=== PATIENT | male | born 1930 | race Caucasian/White ===

== ENCOUNTER 2016-05-05 20:39 | Inpatient (IN) | payer MEDICARE, BC ==
--- NOTE | 2016-05-05 21:10 | ED ---
General Adult HPI - General Chief complaint: Recheck/Abnormal Lab/Rx Stated complaint: Low hemoglobin Time Seen by Provider: 05/05/16 20:53 Source: patient, RN notes reviewed, old records reviewed Mode of arrival: ambulatory Limitations: no limitations - History of Present Illness Initial comments: This is an 85-year-old male the ER to complain of weakness and fatigue. Patient had outpatient lab tests showing low hemoglobin. Patient does admit to dark stools. No prior history of internal bleeding. No are no prior history of GI bleed. No weakness dose syncope no chest pain or shortness of breath. Patient coming out on any blood thinners - Related Data Home Medications Medication Instructions Recorded Confirmed Ascorbic Acid [Vitamin C] 500 mg PO DAILY 05/05/16 05/05/16 Aspirin EC [Ecotrin Low Dose] 81 mg PO DAILY 05/05/16 05/05/16 Bisoprolol-Hctz 5-6.25 mg [Ziac 1 tab PO DAILY 05/05/16 05/05/16 5-6.25] Multivit-Min/FA/Vit K/Lycopene 1 tab PO DAILY 05/05/16 05/05/16 [One-A-Day Men's 50+ Tablet] Allergies Allergy/AdvReac Type Severity Reaction Status Date / Time No Known Allergies Allergy Verified 05/05/16 21:04 Review of Systems ROS Statement: Those systems with pertinent positive or pertinent negative responses have been documented in the HPI. ROS Other: All systems not noted in ROS Statement are negative. 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 Absent: scleral icterus, conjunctival injection, periorbital swelling ENT exam: Present: normal exam, mucous membranes moist Neck exam: Present: normal inspection. Absent: tenderness, meningismus, lymphadenopathy Respiratory exam: Present: normal lung sounds bilaterally. Absent: respiratory distress, wheezes, rales, rhonchi, stridor Cardiovascular Exam: Present: regular rate, normal rhythm, normal heart sounds. Absent: systolic murmur, diastolic murmur, rubs, gallop, clicks GI/Abdominal exam: Present: soft, normal bowel sounds. Absent: distended, tenderness, guarding, rebound, rigid Rectal exam: Present: heme (+) stool, black stool Extremities exam: Present: normal inspection, full ROM, normal capillary refill. Absent: tenderness, pedal edema, joint swelling, calf tenderness Back exam: Present: normal inspection Neurological exam: Present: alert, oriented X3, CN II-XII intact Psychiatric exam: Present: normal affect, normal mood Skin exam: Present: warm, dry, intact, normal color. Absent: rash Course Vital Signs 05/05/16 05/05/16 20:45 22:01 Temperature 98.2 F Pulse Rate 71 66 Respiratory 20 16 Rate Blood Pressure 143/78 127/57 O2 Sat by Pulse 98 96 Oximetry Medical Decision Making - Medical Decision Making 85 male for evaluation of low hemoglobin, patient is anemic, weak, fatigued, occasionally short of breath with activity. No blood thinners. Patient will be admitted for further evaluation of GI bleed - Lab Data Result diagrams: 05/05/16 21:20 05/05/16 21:20 Lab Results 05/05/16 05/05/16 05/05/16 Range/Units 21:20 21:20 21:20 WBC 5.0 (3.8-10.6) k/uL RBC 2.76 L (4.30-5.90) m/uL Hgb 6.1 L* (13.0-17.5) gm/dL Hct 20.8 L (39.0-53.0) % MCV 75.5 L (80.0-100.0) fL MCH 22.0 L (25.0-35.0) pg MCHC 29.2 L (31.0-37.0) g/dL RDW 17.9 H (11.5-15.5) % Plt Count 210 (150-450) k/uL Neutrophils % 65 % Lymphocytes % 22 % Monocytes % 7 % Eosinophils % 2 % Basophils % 1 % Neutrophils # 3.2 (1.3-7.7) k/uL Lymphocytes # 1.1 (1.0-4.8) k/uL Monocytes # 0.4 (0-1.0) k/uL Eosinophils # 0.1 (0-0.7) k/uL Basophils # 0.0 (0-0.2) k/uL Hypochromasia Marked Poikilocytosis Slight Anisocytosis Slight Microcytosis Slight PT (9.0-12.0) sec INR (<1.1) APTT (22.0-30.0) sec Sodium 141 (137-145) mmol/L Potassium 3.5 (3.5-5.1) mmol/L Chloride 106 (98-107) mmol/L Carbon Dioxide 23 (22-30) mmol/L Anion Gap 12 mmol/L BUN 32 H (9-20) mg/dL Creatinine 0.99 (0.66-1.25) mg/dL Est GFR (MDRD) Af Amer >60 (>60 ml/min/1.73 sqM) Est GFR (MDRD) Non-Af >60 (>60 ml/min/1.73 sqM) Glucose 131 H (74-99) mg/dL Calcium 8.9 (8.4-10.2) mg/dL Magnesium 2.1 (1.6-2.3) mg/dL Total Bilirubin 1.3 (0.2-1.3) mg/dL AST 19 (17-59) U/L ALT 26 (21-72) U/L Alkaline Phosphatase 41 (38-126) U/L Total Creatine Kinase 79 (55-170) U/L CK-MB (CK-2) 0.8 (0.0-2.4) ng/mL CK-MB (CK-2) Rel Index 1.0 Troponin I <0.012 (0.000-0.034) ng/mL Total Protein 6.3 (6.3-8.2) g/dL Albumin 3.6 (3.5-5.0) g/dL Lipase 19 L (23-300) U/L Blood Type Blood Type Recheck Antibody Screen Spec Expiration Date 05/05/16 05/05/16 Range/Units 21:20 21:20 WBC (3.8-10.6) k/uL RBC (4.30-5.90) m/uL Hgb (13.0-17.5) gm/dL Hct (39.0-53.0) % MCV (80.0-100.0) fL MCH (25.0-35.0) pg MCHC (31.0-37.0) g/dL RDW (11.5-15.5) % Plt Count (150-450) k/uL Neutrophils % % Lymphocytes % % Monocytes % % Eosinophils % % Basophils % % Neutrophils # (1.3-7.7) k/uL Lymphocytes # (1.0-4.8) k/uL Monocytes # (0-1.0) k/uL Eosinophils # (0-0.7) k/uL Basophils # (0-0.2) k/uL Hypochromasia Poikilocytosis Anisocytosis Microcytosis PT 10.9 (9.0-12.0) sec INR 1.1 (<1.1) APTT 22.1 (22.0-30.0) sec Sodium (137-145) mmol/L Potassium (3.5-5.1) mmol/L Chloride (98-107) mmol/L Carbon Dioxide (22-30) mmol/L Anion Gap mmol/L BUN (9-20) mg/dL Creatinine (0.66-1.25) mg/dL Est GFR (MDRD) Af Amer (>60 ml/min/1.73 sqM) Est GFR (MDRD) Non-Af (>60 ml/min/1.73 sqM) Glucose (74-99) mg/dL Calcium (8.4-10.2) mg/dL Magnesium (1.6-2.3) mg/dL Total Bilirubin (0.2-1.3) mg/dL AST (17-59) U/L ALT (21-72) U/L Alkaline Phosphatase (38-126) U/L Total Creatine Kinase (55-170) U/L CK-MB (CK-2) (0.0-2.4) ng/mL CK-MB (CK-2) Rel Index Troponin I (0.000-0.034) ng/mL Total Protein (6.3-8.2) g/dL Albumin (3.5-5.0) g/dL Lipase (23-300) U/L Blood Type A Positive Blood Type Recheck CABO Indicated Antibody Screen NEGATIVE Spec Expiration Date 05/08/2016 - 2320 Disposition Clinical Impression: Anemia, Symptomatic anemia, GIB (gastrointestinal bleeding) Disposition: ADMITTED IP TO THIS HOSP Condition: Fair Referrals: Willi Braun MD [Primary Care Provider] - 1-2 days
[2016-05-05 21:33] LABS: Anisocytosis Slight; Basophils % (A) 1 %; CH 21.6; CHCM 28.9; Eosinophils # (A) 0.1 k/uL (0-0.7); Eosinophils % (A) 2 %; HCT 20.8 % (39.0-53.0); HDW 3.98; Hypochromasia Marked; Luc # (Auto) 0.11; Luc % (Auto) 2; Lymphocytes # (A) 1.1 k/uL (1.0-4.8); Lymphocytes % (A) 22 %; MCHC 29.2 g/dL (31.0-37.0); MCV 75.5 fL (80.0-100.0); Mean Platelet Volume 8.6; Microcytosis Slight; Monocytes # (A) 0.4 k/uL (0-1.0); Monocytes % (A) 7 %; Neutrophils # (A) 3.2 k/uL (1.3-7.7); Neutrophils % (A) 65 %; Poikilocytosis Slight; RBC 2.76 m/uL (4.30-5.90); RDW 17.9 % (11.5-15.5); WBC (Perox) 5.16
[2016-05-05 21:39] LABS: HGB 6.1 gm/dL (13.0-17.5)
[2016-05-05 21:41] LABS: INR 1.1 (<1.1); Partial Thromboplastin Time 22.1 sec (22.0-30.0); Prothrombin Time 10.9 sec (9.0-12.0)
[2016-05-05 21:43] LABS: ALT 26 U/L (21-72); AST 19 U/L (17-59); Alkaline Phosphatase 41 U/L (38-126); Anion Gap 12 mmol/L; Blood Urea Nitrogen 32 mg/dL (9-20); Calcium 8.9 mg/dL (8.4-10.2); Carbon Dioxide 23 mmol/L (22-30); Chloride 106 mmol/L (98-107); Glucose 131 mg/dL (74-99); Magnesium 2.1 mg/dL (1.6-2.3); Non-African American GFR(MDRD) >60 (>60 ml/min/1.73 sqM); Potassium 3.5 mmol/L (3.5-5.1); Sodium 141 mmol/L (137-145); Total Bilirubin 1.3 mg/dL (0.2-1.3); Total Protein 6.3 g/dL (6.3-8.2)
[2016-05-05 22:01] LABS: Creatine Kinase 79 U/L (55-170)
[2016-05-05 22:08] LABS: Creatine Kinase MB 0.8 ng/mL (0.0-2.4); Troponin I <0.012 ng/mL (0.000-0.034)
[2016-05-05] MEDS ORDERED: SODIUM CHLORIDE 0.9% 1,000 ML IV ONE (22:21)
[2016-05-06 01:17] VITALS: BMI 22.4
[2016-05-06 05:56] LABS: Anisocytosis Slight; Basophils % (A) 0 %; CH 23.3; Eosinophils # (A) 0.2 k/uL (0-0.7); Eosinophils % (A) 3 %; HCT 28.4 % (39.0-53.0); Hypochromasia Marked; Luc # (Auto) 0.13; Luc % (Auto) 2; Lymphocytes # (A) 1.2 k/uL (1.0-4.8); Lymphocytes % (A) 22 %; MCH 23.6 pg (25.0-35.0); MCHC 29.4 g/dL (31.0-37.0); MCV 80.4 fL (80.0-100.0); Mean Platelet Volume 7.1; Microcytosis Slight; Monocytes # (A) 0.3 k/uL (0-1.0); Monocytes % (A) 6 %; Neutrophils # (A) 3.5 k/uL (1.3-7.7); Neutrophils % (A) 66 %; Poikilocytosis Moderate; RBC 3.53 m/uL (4.30-5.90); RDW 17.8 % (11.5-15.5); WBC 5.3 k/uL (3.8-10.6)
[2016-05-06 05:59] LABS: HGB 8.3 gm/dL (13.0-17.5)
--- NOTE | 2016-05-06 09:24 | P.CONS ---
History of Present Illness - Reason for Consult Consult date: 05/06/16 anemia Requesting physician: Willi Braun - History of Present Illness 85-year-old gentleman patient Dr. Willi Braun history of hypertension and remote anemia admitted with fatigue weakness dark-colored stools and low hemoglobin. Hemoglobin 6.1. MCV 75. Platelet 210. INR 1.1. BUN 32. Creatinine 0.9. Transfused 2 units of blood current hemoglobin 8.3. Upon review of previous medical records hemoglobin in November 2015 was 12.7. MCV 101. Denies excessive usage of aspirin or NSAIDs. Takes baby aspirin daily. Afebrile. No weight loss. Denies changes in appetite, weight loss, hematemesis or hematochezia. He has been feeling weak especially walking to the mailbox over the last month. He's been anemic in the past and placed on oral iron. He reports multiple rectal exams by PCP that were negative for blood. Colonoscopy has been recommended in the past but he has declined due to anxiety about the procedure. 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 Past Anesthesia/Blood Transfusion Reactions: No Reported Reaction Past Psychological History: No Psychological Hx Reported Smoking Status: Never smoker Past Alcohol Use History: None Reported Past Drug Use History: None Reported - Past Family History Mother Additional Family Medical History / Comment(s): CABG Father Family Medical History: Unable to Obtain Medications and Allergies Home Medications Medication Instructions Recorded Confirmed Type Ascorbic Acid [Vitamin C] 500 mg PO DAILY 05/05/16 05/05/16 History Aspirin EC [Ecotrin Low Dose] 81 mg PO DAILY 05/05/16 05/05/16 History Bisoprolol-Hctz 5-6.25 mg [Ziac 1 tab PO DAILY 05/05/16 05/05/16 History 5-6.25] Multivit-Min/FA/Vit K/Lycopene 1 tab PO DAILY 05/05/16 05/05/16 History [One-A-Day Men's 50+ Tablet] Allergies Allergy/AdvReac Type Severity Reaction Status Date / Time atropine Allergy Confusion Verified 05/06/16 03:32 Physical Exam Vitals: Vital Signs Temp Pulse Pulse Resp BP BP Pulse Ox 05/06/16 04:33 97.6 F 60 60 18 140/80 140/80 95 05/06/16 04:00 60 18 05/06/16 02:35 98.1 F 64 18 137/78 96 05/06/16 02:05 97.4 F L 68 18 141/71 05/06/16 01:55 97.2 F L 68 18 133/76 97 05/06/16 01:00 97 F L 66 18 147/82 97 05/06/16 00:53 98.2 F 60 16 136/72 99 05/06/16 00:34 98.1 F 60 16 137/65 98 05/06/16 00:04 98.2 F 58 L 16 130/65 98 05/05/16 23:54 98.0 F 59 L 16 136/68 98 05/05/16 23:44 98.0 F 60 16 139/70 99 05/05/16 23:34 98.2 F 69 16 145/70 98 05/05/16 23:24 98.1 F 65 16 141/67 96 Intake and Output 05/05/16 05/06/16 05/06/16 22:59 06:59 14:59 Intake Total 920 Balance 920 Intake: IV 300 Sodium Chloride 0.9% 1, 300 000 ml @ 100 mls/hr IV . Q10H ONE Rx#:[id number] Blood Product 620 Rc As-1 Unit 310 [id number] Rc As-1 Unit 310 [id number] Other: # Voids 1 Weight 77.111 kg General appearance: The patient is alert, oriented, in no acute distress. HET: Head is normocephalic and atraumatic. Pupils are equal and reactive. Oropharynx is clear without lesions. Neck: Supple without lymphadenopathy. Trachea midline. Heart: S1 S2. Regular rate and rhythm. Lungs: No crackles or wheezes are heard. Abdomen: Soft, nontender, nondistended with bowel sounds. No peritoneal signs. No palpable organomegaly or masses. Extremities: Normal skin color and turgor. No cyanosis, rash, ulceration, clubbing, or edema. Radial and pedal pulses are 2/4 bilaterally. Neurological: No focal deficits. Strength and sensation are grossly intact. Results CBC & Chem 7: 05/06/16 05:29 05/05/16 21:20 Labs: Abnormal Lab Results - Last 24 Hours (Table) 05/06/16 Range/Units 05:29 RBC 3.53 L (4.30-5.90) m/uL Hgb 8.3 L D (13.0-17.5) gm/dL Hct 28.4 L (39.0-53.0) % MCH 23.6 L (25.0-35.0) pg MCHC 29.4 L (31.0-37.0) g/dL RDW 17.8 H (11.5-15.5) % Assessment and Plan (1) Symptomatic anemia Narrative/Plan: 85-year-old male admitted with symptomatic microcytic anemia suggestive of iron deficiency and occult blood loss. Status: Acute (2) Microcytic anemia Status: Acute Plan: Plan: 1. Iron indices. 2. EGD colonoscopy recommended and planned for tomorrow afternoon. 3. GI prophylaxis. 4. Monitor CBC closely. 5. Clear liquid dinner today followed by nothing by mouth after clear liquid breakfast tomorrow. The health education coordinator has discussed the risks, benefits and alternative therapies for the above-mentioned procedure and for both sedation/analgesia as well as necessary blood product administration, if indicated, as they pertain to this patient. The patient has indicated understanding and acceptance of the risks and procedures discussed. Thank you for this kind referral and the opportunity to participate in the care of your patient. This consultation was discussed with Dr. Gallegos. The impression and plan of care have been directed as dictated.
[2016-05-06] MEDS ORDERED: PANTOPRAZOLE 40 MG TABLET PO STA (11:39)
--- NOTE | 2016-05-06 11:45 | P.HPIM ---
History of Present Illness 85-year-old male presented to family practice with complaints of increased fatigue and weakness on hemoglobin found to be 6.1. Patient was called and notified to report to the emergency room. Patient was transfused with 2 units of packed red cells hemoglobin up to 8.3. Known to be iron deficient anemia. 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 Past Anesthesia/Blood Transfusion Reactions: No Reported Reaction Past Psychological History: No Psychological Hx Reported Smoking Status: Never smoker Past Alcohol Use History: None Reported Past Drug Use History: None Reported - Past Family History Mother Additional Family Medical History / Comment(s): CABG Father Family Medical History: Unable to Obtain Medications and Allergies Home Medications Medication Instructions Recorded Confirmed Type Ascorbic Acid [Vitamin C] 500 mg PO DAILY 05/05/16 05/05/16 History Aspirin EC [Ecotrin Low Dose] 81 mg PO DAILY 05/05/16 05/05/16 History Bisoprolol-Hctz 5-6.25 mg [Ziac 1 tab PO DAILY 05/05/16 05/05/16 History 5-6.25] Multivit-Min/FA/Vit K/Lycopene 1 tab PO DAILY 05/05/16 05/05/16 History [One-A-Day Men's 50+ Tablet] Allergies Allergy/AdvReac Type Severity Reaction Status Date / Time atropine Allergy Confusion Verified 05/06/16 03:32 Physical Exam Vitals: Vital Signs Temp Pulse Pulse Resp BP BP Pulse Ox 05/06/16 08:00 97.7 F 63 20 146/79 96 05/06/16 04:33 97.6 F 60 60 18 140/80 140/80 95 05/06/16 04:00 60 18 05/06/16 02:35 98.1 F 64 18 137/78 96 05/06/16 02:05 97.4 F L 68 18 141/71 05/06/16 01:55 97.2 F L 68 18 133/76 97 05/06/16 01:00 97 F L 66 18 147/82 97 05/06/16 00:53 98.2 F 60 16 136/72 99 05/06/16 00:34 98.1 F 60 16 137/65 98 05/06/16 00:04 98.2 F 58 L 16 130/65 98 05/05/16 23:54 98.0 F 59 L 16 136/68 98 05/05/16 23:44 98.0 F 60 16 139/70 99 05/05/16 23:34 98.2 F 69 16 145/70 98 05/05/16 23:24 98.1 F 65 16 141/67 96 Intake and Output 05/05/16 05/06/16 05/06/16 22:59 06:59 14:59 Intake Total 920 Balance 920 Intake: IV 300 Sodium Chloride 0.9% 1, 300 000 ml @ 100 mls/hr IV . Q10H ONE Rx#:[id number] Blood Product 620 Rc As-1 Unit 310 [id number] Rc As-1 Unit 310 [id number] Other: # Voids 1 1 # Bowel Movements 1 Weight 77.111 kg - Constitutional General appearance: average body habitus - EENT Eyes: PERRLA Ears: bilateral: normal - Neck Neck: normal ROM - Respiratory Respiratory: bilateral: CTA - Gastrointestinal General gastrointestinal: soft - Integumentary Integumentary: normal - Neurologic Neurologic: CNII-XII intact - Musculoskeletal Musculoskeletal: gait normal - Psychiatric Psychiatric: A&O x's 3, appropriate affect, intact judgment & insight Results CBC & Chem 7: 05/06/16 05:29 05/05/16 21:20 Labs: Abnormal Lab Results - Last 24 Hours (Table) 05/06/16 Range/Units 05:29 RBC 3.53 L (4.30-5.90) m/uL Hgb 8.3 L D (13.0-17.5) gm/dL Hct 28.4 L (39.0-53.0) % MCH 23.6 L (25.0-35.0) pg MCHC 29.4 L (31.0-37.0) g/dL RDW 17.8 H (11.5-15.5) % Assessment and Plan Plan: Assessment Anemia hemoglobin 6.1 symptomatic GI bleed Microcytic anemia iron deficiency Post transfusion 2 units History of hypertension Plan Scheduled for endoscopy and colonoscopy Consultation with Dr. Gallegos
[2016-05-06 13:45] LABS: % Iron Saturation 5.5 % (20-50)
[2016-05-06] MEDS ORDERED: PEG 3350-NA SULF,BICARB,CL/KCL 4,000 ML BOTTLE PO ONE (16:00)
[2016-05-07 08:41] LABS: Anisocytosis Slight; CH 23.4; CHCM 28.9; HCT 30.7 % (39.0-53.0); HDW 4.46; HGB 8.8 gm/dL (13.0-17.5); Hypochromasia Marked; MCH 23.3 pg (25.0-35.0); MCHC 28.7 g/dL (31.0-37.0); MCV 81.3 fL (80.0-100.0); Microcytosis Slight; Poikilocytosis Moderate; RBC 3.77 m/uL (4.30-5.90); RDW 18.3 % (11.5-15.5); WBC 4.4 k/uL (3.8-10.6)
[2016-05-07] MEDS: BISOPROLOL-HCTZ 5-6.25 MG 1 EACH TAB PO SCH (09:28)
--- NOTE | 2016-05-07 09:56 | P.PN ---
Subjective Patient ambulating without difficulty. Hemoglobin up to 8.8. Patient states energy improved. Patient is prepping for upper GI and colonoscopy today Objective - Vital Signs Vital signs: Vital Signs Temp 97.0 F L 05/07/16 08:05 Pulse 70 05/07/16 08:05 Resp 18 05/07/16 08:05 BP 146/75 05/07/16 08:05 Pulse Ox 95 05/07/16 08:05 Intake & Output 05/06/16 05/07/16 05/07/16 18:59 06:59 18:59 Intake Total 750 650 0 Output Total 400 Balance 350 650 0 Weight 76.9 kg Intake: IV 650 0.9% NS @ 80 mL/HR 640 0.9% NS FLUSH 10 Oral 750 0 Output: Urine 400 Other: # Voids 1 # Bowel Movements 4 2 - Constitutional General appearance: Present: average body habitus - EENT Eyes: Present: PERRLA Ears: bilateral: normal - Neck Neck: Present: normal ROM - Respiratory Respiratory: bilateral: CTA - Cardiovascular Rhythm: regular - Gastrointestinal General gastrointestinal: Present: soft - Integumentary Integumentary: Present: normal - Neurologic Neurologic: Present: CNII-XII intact - Musculoskeletal Musculoskeletal: Present: gait normal - Psychiatric Psychiatric: Present: A&O x's 3, appropriate affect, intact judgment & insight - Labs CBC & Chem 7: 05/07/16 08:20 05/05/16 21:20 Labs: Abnormal Lab Results - Last 24 Hours (Table) 05/07/16 Range/Units 08:20 RBC 3.77 L (4.30-5.90) m/uL Hgb 8.8 L (13.0-17.5) gm/dL Hct 30.7 L (39.0-53.0) % MCH 23.3 L (25.0-35.0) pg MCHC 28.7 L (31.0-37.0) g/dL RDW 18.3 H (11.5-15.5) % Assessment and Plan Plan: Assessment anemia GI bleed Microcytic iron deficiency anemia Posttransfusion 2 units History of hypertension Plan Continue consultation with Dr. Rosy Huerta for endoscopy and colonoscopy
[2016-05-07] MEDS ORDERED: PROPOFOL 10 MG/ML 20 ML VIAL IV ONE (13:40)
[2016-05-07] MEDS ORDERED: ePHEDrine 50 MG/ML 1 ML AMP ONE (13:40)
[2016-05-07] MEDS ORDERED: LIDOCAINE 1% INJ 10MG/ML (20 ML MDV) ONE (13:40)
[2016-05-07] MEDS ORDERED: LACTATED RINGERS 1,000 ML IV ONE (13:55)
--- NOTE | 2016-05-07 14:50 | P.PCN ---
Date of Procedure: 05/07/16 Procedure(s) Performed: Procedure: 1. Esophagogastroduodenoscopy and biopsy. 2. Total colonoscopy. Preoperative diagnosis: Symptomatic anemia rule out GI bleed. Postoperative diagnosis: 1. Moderately size hiatal hernia with esophagitis limited to the area of the GE junction. 2. Gastritis. 3. Significant diverticulosis with no evidence of acute diverticulitis, strictures, polyps or cancer. Preparation: GoLYTELY prep. Sedation: Was provided by anesthesia. Brief clinical history: The patient is an 85-year-old male with history of hypertension and remote anemia admitted with fatigue weakness dark-colored stools and low hemoglobin. Hemoglobin 6.1. MCV 75. Platelet 210. INR 1.1. BUN 32. Creatinine 0.9. He was transfused 2 units of blood that brought Hb up to 8.3. Upon review of previous medical records hemoglobin in November 2015 was 12.7. MCV 101. Denies excessive usage of aspirin or NSAIDs. Takes baby aspirin daily. Afebrile. No weight loss. Denies changes in appetite, weight loss, hematemesis or hematochezia. He has been feeling weak especially walking to the mailbox over the last month. He has been anemic in the past and placed on oral iron. He reported prior rectal exams by PCP that were negative for blood. Colonoscopy has been recommended in the past but he has declined due to anxiety about the procedure. The details are summarized in the history and physical and dictated consultation. Procedure: With the patient on his left lateral decubitus position and after informed consent and adequate sedation, I passed the Olympus-GIF 160 video upper endoscope through the cricopharyngeus down the esophagus. GE junction was around 35-36 cm from the incisors and there was a moderately sized hiatal hernia. Initially I did not notice any evidence of esophagitis or complicated reflux disease. As I was continuing the examination, I did notice and area of ulceration at the level of the GE junction with some friability. The stomach was insufflated with air and inspected in detail including the retroflex view in the cardia. There was areas of mottling and erythema and an occasional fading erosion but no ulcers or bleeding. Pyloric channel did not show any ulcers. Duodenal bulb, post bulbar area and descending duodenum appeared within normal limits. However, because of his anemia, I obtained biopsies from the duodenum, in addition to biopsies from the antrum and esophagus as well as the area of ulceration at the GE junction before the endoscope was withdrawn. At this point I proceeded with the colonoscopy. Perianal area did not show any fissures or fistulas. There were no masses felt on digital rectal examination. The Olympus CFQ 160L video colonoscope was then inserted in the rectum in the usual fashion and advanced to the cecum. There was significant diverticular disease with multiple diverticular orifices seen scattered along the length of the bowel with no evidence of acute diverticulitis or strictures. No polyps or tumors were seen. The mucosa appeared healthy and there was no evidence of bleeding. I retroflexed the endoscope in the rectum before the endoscope was withdrawn. The patient tolerated the procedure well. Plan: The patient was reassured. Will await biopsy results. In the meantime, Will allow diet and treat his gastritis/limited esophagitis. Consideration can be given for a capsule endoscopy in the future based on his course.
[2016-05-07] MEDS: MULTIVITAMINS, THERA 1 EACH TAB PO SCH (16:53)
[2016-05-07] MEDS: ASCORBIC ACID 500 MG TAB PO SCH (16:53)
[2016-05-07] MEDS: PANTOPRAZOLE 40 MG TABLET PO SCH (18:25)
[2016-05-08] MEDS: PANTOPRAZOLE 40 MG TABLET PO SCH ×2 (06:29→16:44)
[2016-05-08] MEDS: MULTIVITAMINS, THERA 1 EACH TAB PO SCH (08:32)
[2016-05-08] MEDS: BISOPROLOL-HCTZ 5-6.25 MG 1 EACH TAB PO SCH (08:32)
[2016-05-08] MEDS: ASCORBIC ACID 500 MG TAB PO SCH (08:32)
[2016-05-08 08:40] VITALS: RESP 18
--- NOTE | 2016-05-08 09:53 | P.PN ---
Subjective Principal diagnosis: anemia 85-year-old male admitted with symptomatic anemia status post EGD colonoscopy yesterday with findings of small area of ulceration at the level of GE junction with some friability status post biopsies along with diverticular disease. Iron indices reviewed and consistent with iron deficiency anemia. Feels well this morning. Denies abdominal pain. Tolerating soft diet. Objective - Vital Signs Vital signs: Vital Signs Temp 97.3 F L 05/08/16 08:15 Pulse 78 05/08/16 08:15 Resp 18 05/08/16 08:15 BP 134/80 05/08/16 08:15 Pulse Ox 97 05/08/16 08:15 Intake & Output 05/07/16 05/08/16 05/08/16 18:59 06:59 18:59 Intake Total 120 370 120 Output Total 425 2750 Balance -305 -2380 120 Weight 75 kg Intake: IV 10 0.9% NS FLUSH 10 Oral 120 360 120 Output: Urine 125 2750 Uretheral ([place]) 1500 Urine/Stool Mix 300 - Exam General appearance: The patient is alert, oriented, in no acute distress. HET: Head is normocephalic and atraumatic. Pupils are equal and reactive. Oropharynx is clear without lesions. Neck: Supple without lymphadenopathy. Trachea midline. Heart: S1 S2. Regular rate and rhythm. Lungs: No crackles or wheezes are heard. Abdomen: Soft, nontender, nondistended with bowel sounds. No peritoneal signs. No palpable organomegaly or masses. Extremities: Normal skin color and turgor. No cyanosis, rash, ulceration, clubbing, or edema. Radial and pedal pulses are 2/4 bilaterally. Neurological: No focal deficits. Strength and sensation are grossly intact. - Labs CBC & Chem 7: 05/07/16 08:20 05/05/16 21:20 Assessment and Plan (1) Symptomatic anemia Narrative/Plan: 85-year-old male admitted with symptomatic microcytic iron deficiency anemia this post-EGD colonoscopy with findings of small ulceration near the GE junction status post biopsies with diverticular disease. Status: Acute (2) Microcytic anemia Status: Acute Plan: Plan: 1. Iron indices reviewed. Avoid NSAIDs. Cautious use with aspirin. Omeprazole 20 mg daily. 2. Return to office in 1-2 weeks for reevaluation. We'll follow as needed. Assessment and plan of care discussed with Dr. Delgado.
[2016-05-08] MEDS ORDERED: TAMSULOSIN 0.4 MG CAP.ER.24H PO SCH (11:45)
[2016-05-08 16:11] VITALS: BP 130/68; PULSE 70; TEMP 97.9
--- NOTE | 2016-05-08 20:55 | DS ---
DATE OF ADMISSION: 05/05/2016 DATE OF DISCHARGE: 05/08/2016 Patient was admitted upper GI bleed. Patient underwent upper GI endoscopy which showed esophagitis, gastritis and diverticulosis. Patient is clinically doing well without any more GI bleed. Patient will be discharged today. The only thing is, patient postoperative GI endoscopy procedure because of anesthesia patient has urinary retention, because of which patient had a Owusu catheter. Will discontinue the Owusu catheter and see how he urinates. If he is urinating okay, patient will be discharged today. Otherwise, we will put the Owusu catheter back on, and patient will follow up with Urology as an outpatient in about a week. Patient was seen and examined on the day of discharge. Vitals are stable. GENERAL: The patient is alert and oriented x3, not in any acute distress. Well developed, well nourished. HEENT: Pupils are round and equally reacting to light. EOMI. No scleral icterus. No conjunctival pallor. Normocephalic, atraumatic. No pharyngeal erythema. No thyromegaly. CARDIOVASCULAR: S1 and S2 present. No murmurs, rubs, or gallops. PULMONARY: Chest is clear to auscultation, no wheezing or crackles. ABDOMEN: Soft, nontender, nondistended, normoactive bowel sounds. No palpable organomegaly. MUSCULOSKELETAL: No joint swelling or deformity. EXTREMITIES: No cyanosis, clubbing, or pedal edema. NEUROLOGICAL: Gross neurological examination did not reveal any focal deficits. SKIN: No rashes. FINAL DIAGNOSES: 1. Upper gastrointestinal bleed due to above-mentioned reasons. 2. Iron deficiency anemia; microcytic anemia. Patient is already on iron supplementation. 3. Hypertension. Patient will be discharged today in stable medical condition to home. Activity as tolerated. Follow up with Dr. Willi Braun in about 3 to 5 days; Dr. Kevin Gallegos in one week. Activity as tolerated. Cardiac diet. Spent greater than 35 minutes in total discharge process.
== END 2016-05-08 17:35 | disposition home or self-care (01) | DRG 379 ==
LOC: EC 20:39 → 6SEL 22:21
PROVIDERS: ADMIT Family Medicine; ATTEND Family Medicine
PROC: 30233N1 Transfusion of Nonautologous Red Blood Cells into Peripheral Vein, Percutaneous Approach (ICD-10-PCS; 2016-05-05)
PROC: 0DB58ZX Excision of Esophagus, Via Natural or Artificial Opening Endoscopic, Diagnostic (ICD-10-PCS; 2016-05-07)
PROC: 0DB48ZX Excision of Esophagogastric Junction, Via Natural or Artificial Opening Endoscopic, Diagnostic (ICD-10-PCS; 2016-05-07)
PROC: 0DJD8ZZ Inspection of Lower Intestinal Tract, Via Natural or Artificial Opening Endoscopic (ICD-10-PCS; 2016-05-07)
PROC: 0DB98ZX Excision of Duodenum, Via Natural or Artificial Opening Endoscopic, Diagnostic (ICD-10-PCS; principal; 2016-05-07 12:55)
PROC: 0DB68ZX Excision of Stomach, Via Natural or Artificial Opening Endoscopic, Diagnostic (ICD-10-PCS; 2016-05-07 12:55)
DX: K25.4 Chronic or unspecified gastric ulcer with hemorrhage (principal); I10 Essential (primary) hypertension; K20.9 Esophagitis, unspecified; K44.9 Diaphragmatic hernia without obstruction or gangrene; K29.71 Gastritis, unspecified, with bleeding; D50.9 Iron deficiency anemia, unspecified; K57.90 Diverticulosis of intestine, part unspecified, without perforation or abscess without bleeding; R33.9 Retention of urine, unspecified; Z79.82 Long term (current) use of aspirin; Z79.899 Other long term (current) drug therapy
CPT/HCPCS: 36415; 43239; 45378; 80053; 82272; 82550; 82553; 82607; 82728; 82746; 82747; 83540; 83550; 83690; 83735; 84439; 84443; 84484; 85025; 85027; 85045; 85610; 85730; 86850; 86900; 86901; 86920; 88305; 88342; 99153; 99285

== ENCOUNTER → 2019-03-28 | Outpatient (CLI) | payer MEDICARE ==
[2019-03-28 17:57] LABS: HCT 46.3 % (39.0-53.0); HGB 15.7 gm/dL (13.0-17.5); MCH 33.3 pg (25.0-35.0); MCHC 33.8 g/dL (31.0-37.0); Mean Platelet Volume 7.4; Platelet Count 208 k/uL (150-450); RDW 12.3 % (11.5-15.5); WBC 6.1 k/uL (3.8-10.6)
[2019-03-28 18:01] LABS: MCV 98.5 fL (80.0-100.0)
[2019-03-28 18:11] LABS: Erythrocyte Sedimentation Rate 8 mm/hr (0-15)
== END ==
LOC: LABWHC1 16:34
PROVIDERS: ATTEND Ophthalmology
DX: M31.6 Other giant cell arteritis (principal)
CPT/HCPCS: 36415; 85027; 85652; 86140